=== PATIENT | male | born 1960 | race Caucasian/White ===

== ENCOUNTER 2024-07-21 12:50 | Outpatient (CLI) | payer BC ==
[2024-07-21] MEDS ORDERED: Iopamidol 370 76% 100 ML VIAL ONE (15:08)
== END 2024-07-21 12:51 | disposition home or self-care (01) ==
LOC: CT 12:50
PROVIDERS: ATTEND Urology
DX: N28.1 Cyst of kidney, acquired (principal); N40.1 Benign prostatic hyperplasia with lower urinary tract symptoms; R31.29 Other microscopic hematuria; R97.20 Elevated prostate specific antigen [PSA]; N20.0 Calculus of kidney; K76.0 Fatty (change of) liver, not elsewhere classified; D18.03 Hemangioma of intra-abdominal structures
CPT/HCPCS: 74178; Q9967